=== PATIENT | female | born 1980 | race Caucasian/White ===

== ENCOUNTER 2016-10-30 09:13 | Emergency (ER) | payer OTHER ==
[~2016-10-30] VITALS: Ht 175.3 cm; Wt 88.5 kg
[~2016-10-30 09:13] MED LIST: LEVOXYL50 MCG PO
[2016-10-30 09:16] VITALS: BP 122/85
--- NOTE | 2016-10-30 09:27 | ED UPPER/LOWER EXTREMITY COMPL ---
History of Present Illness General Chief Complaint: Foot or Ankle Injury Stated Complaint: LT FOOT PAIN Source: patient, old records Exam Limitations: no limitations Vital Signs & Intake/Output Vital Signs & Intake/Output ED Intake and Output 10/31 0000 10/30 1200 Intake Total Output Total Balance Patient 195 lb Weight Allergies Coded Allergies: NO KNOWN ALLERGIES (02/16/12) Reconcile Medications Levothyroxine Sodium (Levoxyl) 50 MCG TABLET 1 TAB PO DAILY AC THYROID ( Reported) Pantoprazole Sodium 40 MG TABLET.DR 1 TAB PO DAILY GI (Reported) Triage Note: 36 YEAR OLD FEMALE COMPLAINS OF PAIN TO BALL OF L FOOT SINCE LAST SATURDAY, DENIES INJURY. PT JUST STARTED WALKING AGAIN FOR EXERCISE Triage Nurses Notes Reviewed? yes : No Patient currently breastfeeds: No HPI: Ms Maynard is a 36 year-old female with non significant past medical history who presented to emergency department complaining of worsening left lower extremity foot pain. Patient states that her symptoms initially began on Saturday10/26/2016. She describes the pain this morning of 7 out of 10 in severity. Patient states her pain is described as a pressure and dull pain. With ambulation goes up to 10 out of 10 in severity. Patient has recently started an intensive exercise regimen walking up to 2 miles per day. She was able to tolerate this up until yesterday when she states that she was on her feet for over 5 hours. Patient has no history of arthritis or family history of arthritis. Patient did endorse one hour after waking up this morning increased stiffness which has decreased in intensiveness over the course today. She denies any recent trauma to the here foot. Pain has been responsive to ibuprofen which she took earlier on this morning. (ONEYDA BAUTISTA,VARSHA) Past History Travel History Traveled to [place] past 21 day No Medical History Any Pertinent Medical History? none Neurological: NONE EENT: NONE Cardiovascular: NONE Respiratory: NONE Gastrointestinal: NONE Hepatic: NONE Renal: NONE Musculoskeletal: NONE Psychiatric: NONE Endocrine: hypothyroidism Blood Disorders: NONE Cancer(s): NONE ASSIGNER/Reproductive: NONE Surgical History Surgical History: none Psychosocial History What is your primary language Salvadorean Tobacco Use: Current Daily Use Daily Tobacco Use Amount/Type: => 5 Cigarettes daily ETOH Use: denies use Illicit Drug Use: denies illicit drug use Family History Hx Contributory? No (VARSHA CALL MD) Review of Systems Review of Systems Constitutional: Reports: see HPI. Denies: chills, diaphoresis, fever. Genitourinary: Denies: discharge, dysuria, frequency. Musculoskeletal: Reports: joint pain. (VARSHA CALL MD) Physical Exam Physical Exam General Appearance: well developed/nourished, no apparent distress Eyes: Bilateral: PERRL, EOMI. Neck: normal inspection Cardiovascular/Respiratory: normal breath sounds, normal peripheral pulses Peripheral Pulses: 4+ dorsalis pedis (R), 4+ dorsalis pedis (L) Gastrointestinal: BS +, No Tenderness, No Guarding Back: normal inspection Foot Left: normal inspection, Tenderness with Foot Inversion. Strength 5/5. Foot Right: normal inspection, normal range of motion, Strenght 5/5 (VARSHA CALL MD) Progress Differential Diagnosis: contusion, dislocation, fracture, sprain Plan of Care: Laboratory Tests 10/30/16 0945: Urine Test Cancelled Radiology Impression: no acute abnormality, no fracture, no dislocation (VARSHA CALL MD) Diagnostic Imaging: Viewed by Me: Radiology Read. Discussed w/RAD: Radiology Read. (LAKE WASHINGTON MD) Departure Departure Disposition: HOME OR SELF CARE Condition: Stable Clinical Impression Primary Impression: Sprain Referrals: LAURY BAUTISTA,MURIEL UNKNOWN (PCP/Family) Additional Instructions: Please inform your primary care physician of this visit to the emergency department. Avoid any excessive exercise or foot stress for the next 7-14 days. Please use ibuprofen and non steroidal anti inflamatories as needed. Continue to rest and ice foot as necessary. Should you feel that your symptoms are worsening please come back to the emergency department. We also provided you a referral for the orthopedic service. In the next 7 days if your symptoms have not resolved please call them Departure Forms: Customer Survey General Discharge Information (VARSHA CALL MD) Resident Co-Sign Statement Statement: ED Attending supervision documentation- [X] I saw and evaluated the patient. I have also reviewed all the pertinent lab results and diagnostic results. I agree with the findings and the plan of care as documented in the Resident's documentation. [X] I have reviewed the ED Record and agree with the Resident's documentation. [] Additions or exceptions (if any) to the Resident's note and plan are summarized below: [] (LAKE WASHINGTON MD)
[2016-10-30] MEDS ORDERED: PANTOPRAZOLE SO40 M1 PO (10:21)
--- NOTE | 2016-10-30 10:25 | RADIOLOGY REPORT ---
EXAMINATION: XR FOOT, LEFT CLINICAL INFORMATION: Left foot pain. COMPARISON: None TECHNIQUE: AP, lateral, and oblique views of the left foot. FINDINGS: There is no visible acute fracture, dislocation or soft tissue abnormality. There is small retrocalcaneal spur. The ankle mortise and subtalar joints are normal. The soft tissues are normal. IMPRESSION: No acute fracture or dislocation. Small retrocalcaneal spur.
== END 2016-10-30 11:12 ==
LOC: ERH 09:13
DX: S93.602A Unspecified sprain of left foot, initial encounter (principal); X58.XXXA Exposure to other specified factors, initial encounter; Y93.01 Activity, walking, marching and hiking; Y92.9 Unspecified place or not applicable
CPT/HCPCS: 73630-LT; 81025